=== PATIENT | female | born 1985 | race Caucasian/White ===

== ENCOUNTER → 2018-02-12 | Outpatient (CLI) | payer OTHER | END | disposition home or self-care (01) | LOC: LB 15:46 | DX: E03.9 Hypothyroidism, unspecified (principal) ==

== ENCOUNTER → 2018-03-14 | Outpatient (CLI) | payer OTHER ==
[2018-03-14 15:25] LABS: BASOPHIL % 0.5 % (0-2); PLATELET COUNT 277 x10^3mcL (130-400)
[2018-03-14 15:56] LABS: FREE T4 1.17 ng/dL (0.76-1.46)
[2018-03-17 07:21] LABS: RAPID PLASMA REAGIN Non Reactive (Non Reactive)
== END | disposition home or self-care (01) ==
LOC: LB 15:01
DX: Z34.90 Encounter for supervision of normal pregnancy, unspecified, unspecified trimester (principal)
CPT/HCPCS: 84439

== ENCOUNTER → 2018-05-08 | Outpatient (CLI) | payer OTHER ==
[2018-05-08 09:41] LABS: BASOPHIL % 0.3 % (0-2); PLATELET COUNT 251 x10^3mcL (130-400)
[2018-05-08 09:43] LABS: T4(THYROXINE) 15.2 ug/dL (4.7-13.3)
[2018-05-08 09:48] LABS: RED CELL DISTRIBUTION WIDTH 14.6 % (11.5-14.5)
[2018-05-09 06:19] LABS: RAPID PLASMA REAGIN Non Reactive (Non Reactive)
== END | disposition home or self-care (01) ==
LOC: LB 08:39
DX: Z34.90 Encounter for supervision of normal pregnancy, unspecified, unspecified trimester (principal); E03.9 Hypothyroidism, unspecified

== ENCOUNTER → 2018-05-24 | Outpatient (CLI) | payer OTHER ==
[2018-05-24 10:20] LABS: GLUCOSE FASTING 108 mg/dL (70-110)
== END | disposition home or self-care (01) ==
LOC: LB 09:52
DX: R73.02 Impaired glucose tolerance (oral) (principal)

== ENCOUNTER → 2018-09-10 | Outpatient (CLI) | payer OTHER ==
[2018-09-10 13:42] LABS: T4(THYROXINE) 12.7 ug/dL (4.7-13.3)
== END | disposition home or self-care (01) ==
LOC: LB 12:51
DX: E03.9 Hypothyroidism, unspecified (principal)

== ENCOUNTER → 2019-03-06 | Outpatient (CLI) | payer OTHER ==
[2019-03-06 09:15] LABS: BASOPHIL % 0.5 % (0-2); PLATELET COUNT 346 x10^3mcL (130-400); RED CELL DISTRIBUTION WIDTH 13.5 % (11.5-14.5)
[2019-03-06 09:21] LABS: UA SPECIFIC GRAVITY 1.015 (1.005-1.035); microscopic required? YES; urine erythrocyte 3+ (NEGATIVE)
[2019-03-06 09:43] LABS: ALBUMIN 3.3 g/dL (3.4-5.0); ALKALINE PHOSPHATASE 102 U/L (46-116); ALT/SGPT 15 U/L (14-59); AST/SGOT 5 U/L (15-37); BILIRUBIN TOTAL 0.38 mg/dL (0.20-1.00); CALCIUM 9.2 mg/dL (8.5-10.1); CARBON DIOXIDE 29.2 mmol/L (21-32); CHLORIDE SERUM 105 mmol/L (98-107); CHOLESTEROL 203 mg/dL (<200); CHOLESTEROL/HDL RATIO 2.9; CREATININE SERUM 0.9 mg/dL (0.6-1.0); GFR1 > 60 mL/min; GLUCOSE SERUM 95 mg/dL (74-106); HDL CHOLESTEROL 69 mg/dL (40-60); POTASSIUM SERUM 4.3 mmol/L (3.5-5.1); SODIUM SERUM 139 mmol/L (136-145); TOTAL PROTEIN, SERUM 7.1 g/dL (6.4-8.2); TRIGLYCERIDES 105 mg/dL (<150)
== END | disposition home or self-care (01) ==
LOC: LB 08:47
DX: Z00.00 Encounter for general adult medical examination without abnormal findings (principal); E03.9 Hypothyroidism, unspecified

== ENCOUNTER → 2019-06-04 | Outpatient (CLI) | payer OTHER ==
[2019-06-04 09:55] LABS: FREE T4 1.31 ng/dL (0.76-1.46)
== END | disposition home or self-care (01) ==
LOC: LB 08:50
DX: E03.9 Hypothyroidism, unspecified (principal)
CPT/HCPCS: 84439

== ENCOUNTER → 2020-02-04 | Outpatient (CLI) | payer OTHER ==
[2020-02-04 10:28] LABS: BASOPHIL % 0.3 % (0-2); PLATELET COUNT 294 x10^3mcL (130-400); RED CELL DISTRIBUTION WIDTH 13.1 % (11.5-14.5)
[2020-02-04 10:39] LABS: ALKALINE PHOSPHATASE 99 U/L (46-116); ALT/SGPT 21 U/L (14-59); AST/SGOT 18 U/L (15-37); BILIRUBIN TOTAL 0.5 mg/dL (0.20-1.00); CALCIUM 9.2 mg/dL (8.5-10.1); CARBON DIOXIDE 22.9 mmol/L (21-32); CHLORIDE SERUM 103 mmol/L (98-107); FREE T4 1.22 ng/dL (0.76-1.46); GFR1 > 60 mL/min; GLUCOSE SERUM 112 mg/dL (74-106); POTASSIUM SERUM 4.2 mmol/L (3.5-5.1); SODIUM SERUM 136 mmol/L (136-145); TOTAL PROTEIN, SERUM 7.6 g/dL (6.4-8.2)
[2020-02-04 10:44] LABS: IRON 66 ug/dL (50-170); TOTAL IRON BINDING CAPACITY 290 ug/dL (250-450)
== END | disposition home or self-care (01) ==
LOC: LB 09:34
DX: Z00.00 Encounter for general adult medical examination without abnormal findings (principal); E03.9 Hypothyroidism, unspecified; R53.83 Other fatigue
CPT/HCPCS: 84439

== ENCOUNTER → 2020-03-23 | Outpatient (CLI) | payer OTHER | END | disposition home or self-care (01) | LOC: LB 12:11 | DX: E03.9 Hypothyroidism, unspecified (principal) ==

== ENCOUNTER → 2020-04-01 | Outpatient (CLI) | payer OTHER | END | disposition home or self-care (01) | LOC: RD 15:10 | DX: M25.511 Pain in right shoulder (principal) ==

== ENCOUNTER → 2020-04-14 | Outpatient (CLI) | payer OTHER ==
[2020-04-14 09:31] LABS: UA SPECIFIC GRAVITY >=1.030 (1.005-1.035); microscopic required? YES; urine erythrocyte TRACE (NEGATIVE)
[2020-04-14 10:12] LABS: BASOPHIL % 0.5 % (0.2-1.3); PLATELET COUNT 289 x10^3mcL (179-408); RED CELL DISTRIBUTION WIDTH 13.2 % (12.3-17.7)
[2020-04-14 10:42] LABS: ALBUMIN 3.7 g/dL (3.4-5.0); ALKALINE PHOSPHATASE 92 U/L (46-116); ALT/SGPT 24 U/L (14-59); AST/SGOT 14 U/L (15-37); BILIRUBIN TOTAL 0.57 mg/dL (0.20-1.00); CALCIUM 8.8 mg/dL (8.5-10.1); CARBON DIOXIDE 26.5 mmol/L (21-32); CHLORIDE SERUM 103 mmol/L (98-107); GFR1 > 60 mL/min; GLUCOSE SERUM 98 mg/dL (74-106); POTASSIUM SERUM 3.7 mmol/L (3.5-5.1); SODIUM SERUM 138 mmol/L (136-145); TOTAL PROTEIN, SERUM 7.3 g/dL (6.4-8.2); TRIGLYCERIDES 132 mg/dL (<150)
[2020-04-14 10:43] LABS: CHOLESTEROL 219 mg/dL (<200); CHOLESTEROL/HDL RATIO 3.1; HDL CHOLESTEROL 70 mg/dL (40-60)
== END ==
LOC: LB 09:02
DX: Z00.00 Encounter for general adult medical examination without abnormal findings (principal)

== ENCOUNTER → 2020-06-10 | Outpatient (CLI) | payer OTHER | END | disposition home or self-care (01) | LOC: MI 08:41 | PROC: BP38ZZZ Magnetic Resonance Imaging (MRI) of Right Shoulder (ICD-10-PCS; principal; 2020-06-10) | DX: M25.511 Pain in right shoulder (principal) ==